=== PATIENT | male | born 1975 | race Asian ===

== ENCOUNTER 2021-06-22 23:37 | Emergency (ER) | payer SELFPAY ==
[2021-06-23 00:10] VITALS: BMI 22.4
[2021-06-23] MEDS ORDERED: SODIUM CHLORIDE IV ONE (01:15)
[2021-06-23] MEDS ORDERED: ACETAMINOPHEN 1000 MG/100 ML BAG IVPB ONE (01:17)
[2021-06-23] MEDS ORDERED: ACETAMINOPHEN INJECTION 100 ML IVPB ONE (02:49)
[2021-06-23 02:52] LABS: BASO % 0.3 % (0-2.0); HEMATOCRIT 42.2 % (35.4-49); HEMOGLOBIN 14.5 GM/dL (11.7-16.9); LYMPH % 8.3 % (8-40); MCHC 34.2 g/dl (32.0-35.9); MEAN CELL VOLUME 90.5 fl (80-96); MEAN PLT VOLUME 7.6 fl (7.5-11.1); MONO % 6.2 % (3.8-10.2); NEUT % 85.2 % (42.8-82.8); PLATELET COUNT 165 10^3/uL (134-434); RBC 4.66 M/mm3 (4.00-5.60); WHITE BLOOD COUNT 11.3 K/mm3 (4.0-10.0)
[2021-06-23 03:19] LABS: CALCIUM 8.3 mg/dL (8.5-10.1)
[2021-06-23 03:20] LABS: ALBUMIN 3.9 g/dl (3.4-5.0); BLOOD UREA NITROGEN 11.2 mg/dL (7-18)
[2021-06-23 03:24] LABS: BILIRUBIN,TOTAL 1.1 mg/dL (0.2-1); TOT PROT 7.2 g/dl (6.4-8.2)
[2021-06-23 04:04] LABS: INR 1.26 (0.83-1.09); PROTHROMBIN TIME (PATIENT) 14.5 SEC (9.7-13.0)
[2021-06-23 04:07] LABS: ACTIVATED PTT 32.1 SECONDS (25.2-36.5)
[2021-06-23 04:59] VITALS: BP 110/50; PULSE 69; TEMP 98.6
== END 2021-06-23 05:14 | disposition home or self-care (01) ==
LOC: JER 23:37
PROC: 3E033GC Introduction of Other Therapeutic Substance into Peripheral Vein, Percutaneous Approach (ICD-10-PCS; principal; 2021-06-22)
DX: U07.1 COVID-19 (principal)
CPT/HCPCS: 36415; 71045-TC-FY; 80053; 83605; 85025; 85610; 85730; 87040; 93005; 93010; 99285-25